=== PATIENT | female | born 1940 | race Caucasian/White ===

== ENCOUNTER → 2017-09-22 | Outpatient (CLI) | payer MEDICARE, OTHER, SELFPAY | PROVIDERS: Visit Provider Family Medicine | DX: E03.9 Hypothyroidism, unspecified (principal) | CPT/HCPCS: 36415; 84439; 84443 ==

== ENCOUNTER → 2018-01-27 13:57 | Outpatient (CLI) | payer MEDICARE, OTHER, SELFPAY ==
--- NOTE | 2018-01-27 13:59 | CA_ITS ---
PROCEDURE: 2-D M-mode and color Doppler study INDICATIONS FOR THE TEST: Chest pain COPD Heart Murmur Tobacco SmokingEX Palpitations Fatigue Syncope Edema HypertensionXDiabetes Mellitus Rheumatic Fever SOB BOWMAN Obesity HyperlipidemiaX Family History HD Additional History CAD,PTHN PATIENT INFORMATION HEIGHT: 61 WEIGHT:168 GENDER: Female B/P:146/57 2-D/M-MODE INTERPRETATION: 2-D MEASUREMENTS OBSERVED VALUES IN CMS Right Ventricular Dimension (RVDd) 2.3 Interventricular Septum (Thickness)(IVsd) 1.3 Left Ventricular Internal Dimensions(LVIDd) 4.0 Left Ventricular Posterior Wall (Thickness)(LVPWd) 1.2 Aortic Root 3.4 Aortic Cusp Separation 1.0 Left Atrial Dimensions (LAD) 3.2 2D 1. Left atrium is mildly enlarged, left ventricle is normal size, there is mild concentric left ventricular hypertrophy, visually estimated ejection fraction 55% with no obvious regional wall motion abnormality. 2. The right atrium and right ventricle are normal size and contractility. 3. The aortic valve is thickened and calcified with restriction the leaflet mobility. 4. The mitral valve has mitral annular calcification, leaflets are minimally thickened. 5. The pulmonic valve is poorly visualized 6. No significant pericardial effusion noted. DOPPLER INTERROGATION: Doppler interrogation of the aortic, mitral and tricuspid valve reveals presence of gradient across valve of 15 mmHg consistent with mild aortic stenosis, there is mild aortic insufficiency present. Grade 1 diastolic dysfunction seen with tissue Doppler evidence of raised left atrial pressure. Mild mitral and tricuspid regurgitation. Tricuspid regurgitant jet velocity insufficient for calculation of the right ventricular systolic pressure. CONCLUSION: 1. Mildly enlarged left atrium, normal left ventricular size, mild concentric left ventricular hypertrophy, visually estimated ejection fraction of 55% with no obvious regional wall motion abnormality, grade 1 diastolic dysfunction seen with tissue Doppler evidence of raised left atrial pressure. 2. Thickened and calcified aortic valve mean gradient across valve of 15 mmHg represents mild aortic stenosis, there is mild aortic insufficiency present. 3. Mild mitral and tricuspid regurgitation. 4. No significant pericardial effusion noted.
== END ==
PROVIDERS: PCP Family Medicine; Visit Provider Internal Medicine
DX: I27.20 Pulmonary hypertension, unspecified (principal)
CPT/HCPCS: 93306

== ENCOUNTER → 2018-02-01 08:57 | Outpatient (CLI) | payer MEDICARE, OTHER, SELFPAY ==
[2018-02-01 10:33] LABS: Free T4 (Free Thyroxine) 1.21 ng/dl (0.76-1.46); Thyroid Stimulating Hormone 0.16 uIU/ml (0.358-3.740)
== END ==
PROVIDERS: Visit Provider Family Medicine
DX: E03.9 Hypothyroidism, unspecified (principal)
CPT/HCPCS: 36415; 84439; 84443

== ENCOUNTER → 2020-06-27 07:10 | Outpatient (CLI) | payer MEDICARE, OTHER, SELFPAY ==
[2020-06-27 08:22] LABS: Basophils % 0.7 % (0.1-2.0); Eosinophils # 0.4 K/mm3 (0.0-0.4); Eosinophils % 8.3 % (0.1-12.0); Hematocrit 36.3 % (37.0-47.0); Hemoglobin 12.2 g/dL (12.2-16.2); Lymphocytes # 1.2 K/mm3 (0.7-4.5); Lymphocytes % 22.7 % (10-50); Mean Corpuscular HGB Conc 33.7 g/dL (31.8-35.4); Mean Corpuscular Hemoglobin 33.2 pg (27.0-31.2); Mean Corpuscular Volume 98.6 fl (81-99); Monocytes # 0.2 K/mm3 (0.1-1.0); Monocytes % 4.5 % (1.7-9.3); Neutrophils # 3.3 K/mm3 (1.8-7.8); Neutrophils % 63.8 % (37.0-80.0); Platelet Count 162 K/mm3 (142-424); Red Blood Count 3.68 M/mm3 (4.20-5.40); Red Cell Distribution Width 12.6 % (11.5-17.5); White Blood Count 5.2 K/mm3 (4.8-10.8)
[2020-06-27 08:57] LABS: Free T4 (Free Thyroxine) 1.15 ng/dl (0.78-2.19)
[2020-06-27 17:47] LABS: Alanine Aminotransferase 17 U/L (12-78); Albumin Level 3.8 g/dl (3.5-5.0); Albumin/Globulin Ratio 1.4 (1.1-1.8); Alkaline Phosphatase 87 U/L (38-126); Anion Gap 10.7 mEq/L (5-15); Aspartate Amino Transferase 23 U/L (14-36); Bilirubin,Total 0.3 mg/dl (0.2-1.3); Blood Urea Nitrogen 19 mg/dl (7-17); Calcium 9.5 mg/dl (8.4-10.2); Carbon Dioxide 29 mmol/L (22.0-30.0); Chloride 106 mmol/L (98-107); Cholesterol 201 mg/dl (140-200); Estimated Glomerular Filt Rate 60 ml/min (>60); GFR (African American) 73 ML/MIN (>60); Globulin 2.7 g/dL (1.3-3.2); Glucose 103 mg/dl (74-100); HDL Cholesterol 66 mg/dl (40-60); Magnesium 1.8 mg/dl (1.6-2.3); Phosphorous 4.3 mg/dl (2.5-4.5); Potassium 4.7 mmoL/L (3.5-5.1); Sodium 141 mmol/L (136-145); Total Protein,Serum 6.5 g/dl (6.3-8.2); Triglycerides 122 mg/dl (30-150); VLDL Cholesterol 24 mg/dL (0-40)
[2020-06-27 17:58] LABS: Direct LDL Cholesterol 105.53 mg/dL (100-129)
[2020-06-27 18:19] LABS: Thyroid Stimulating Hormone 0.21 uIU/mL (0.465-4.68)
[2020-06-27 18:37] LABS: Vitamin B12 286 pg/mL (239-931)
[2020-06-27 18:54] LABS: Creatinine,Urine Random 90 mg/dL (Not Estab.)
[2020-06-27 19:21] LABS: Microalbumin < 6.000 mg/L (0-16.7)
== END ==
PROVIDERS: Visit Provider Family Medicine
DX: R53.83 Other fatigue (principal); I10 Essential (primary) hypertension; E78.2 Mixed hyperlipidemia; E03.9 Hypothyroidism, unspecified; E55.9 Vitamin D deficiency, unspecified
CPT/HCPCS: 36415; 80053; 80061; 82043; 82306; 82570; 82607; 83735; 84100; 84439; 84443; 85025

== ENCOUNTER → 2020-12-05 10:09 | Outpatient (CLI) | payer MEDICARE, OTHER, SELFPAY | PROVIDERS: PCP Family Medicine; Visit Provider Urology | DX: I35.1 Nonrheumatic aortic (valve) insufficiency (principal) | CPT/HCPCS: 93306 ==

== ENCOUNTER 2021-05-17 22:39 | Observation (INO) | payer MEDICARE, OTHER, SELFPAY ==
[2021-05-17 22:39] VITALS: BP 220/108; BP 235/110; PULSE 97; RESP 22; TEMP 36.7; O2SAT 98; BMI 28.3
[2021-05-17 22:43] VITALS: BMI 28.3
[2021-05-17 22:48] VITALS: BP 190/101; PULSE 80; RESP 15; O2SAT 97
--- NOTE | 2021-05-17 22:48 | ECG_ITS ---
APPROVED REPORT Exam: Resting ECG HR:95 bpm ECG Measurements Heart Rate [address] 176 P 49 QRSd 76 QRS -8 QT 344 T 39 QTc 432 Conclusion Normal sinus rhythm Left atrial abnormality Late R wave progression Abnormal ECG Electronically signed by : Justus Woods MD 05/20/2021 11:50:51
--- NOTE | 2021-05-17 22:48 | XR_ITS ---
PROCEDURE INFORMATION: Exam: XR Chest Exam date and time: 05/17/2021 10:48 PM Age: 80 years old Clinical indication: Pain; Chest pressure and other: Elevated BP; Additional info: Relieved chest pain with elevated BP TECHNIQUE: Imaging protocol: XR of the chest. Views: 2 views. COMPARISON: [facility] CT CHEST W/ CONTRAST 08/30/2016 9:26 AM FINDINGS: Lungs: Scattered linear subsegmental atelectasis or scarring in the bilateral perihilar and infrahilar regions. No focal airspace consolidation. No overt pulmonary edema. Pleural spaces: No pleural effusion. Heart/Mediastinum: Normal heart size. Vasculature: Aortic atherosclerosis. Bones/joints: Osteopenia. Dextroconvex thoracic curvature. Spondylosis. IMPRESSION: Scattered bilateral perihilar/infrahilar subsegmental atelectasis or scarring.
[2021-05-17 22:56] LABS: Basophils # 0.1 K/mm3 (0-0.2); Basophils % 1.3 % (0.1-2.0); Eosinophils # 0.4 K/mm3 (0.0-0.4); Eosinophils % 5.9 % (0.1-12.0); Hematocrit 39.9 % (37.0-47.0); Lymphocytes # 3.8 K/mm3 (0.7-4.5); Lymphocytes % 56.5 % (10-50); Mean Corpuscular HGB Conc 32.7 g/dL (31.8-35.4); Mean Corpuscular Hemoglobin 31.2 pg (27.0-31.2); Mean Corpuscular Volume 95.2 fl (81-99); Mean Platelet Volume 8.4 fl (7.4-10.4); Monocytes # 0.3 K/mm3 (0.1-1.0); Monocytes % 4.9 % (1.7-9.3); Neutrophils # 2.1 K/mm3 (1.8-7.8); Neutrophils % 31.4 % (37.0-80.0); Platelet Count 183 K/mm3 (142-424); Red Blood Count 4.19 M/mm3 (4.20-5.40); Red Cell Distribution Width 13.6 % (11.5-17.5); White Blood Count 6.7 K/mm3 (4.8-10.8)
[2021-05-17 22:58] LABS: MANUAL DIFFERENTIAL MANUAL DIFFERENTIAL (MANUAL DIFF)
[2021-05-17 23:00] VITALS: BP 184/99; PULSE 78; RESP 14; O2SAT 98
[2021-05-17 23:03] LABS: Alanine Aminotransferase 18 U/L (12-78); Albumin Level 4.8 g/dl (3.5-5.0); Alkaline Phosphatase 122 U/L (38-126); Anion Gap 15.9 mEq/L (5-15); Aspartate Amino Transferase 31 U/L (14-36); Bilirubin,Direct 0.4 mg/dl (0.0-0.4); Bilirubin,Total 0.4 mg/dl (0.2-1.3); Blood Urea Nitrogen 29 mg/dl (7-17); Calcium 9.7 mg/dl (8.4-10.2); Carbon Dioxide 24 mmol/L (22.0-30.0); Chloride 103 mmol/L (98-107); Creatinine Clearance Estimated 47 mL/min (50-200); Estimated Glomerular Filt Rate 53 ml/min (>60); GFR (African American) 64 ML/MIN (>60); Glucose 107 mg/dl (74-100); Magnesium 1.9 mg/dl (1.6-2.3); Potassium 3.9 mmoL/L (3.5-5.1); Sodium 139 mmol/L (136-145); Total Protein,Serum 8.1 g/dl (6.3-8.2)
[2021-05-17 23:05] LABS: Eosinophils % 3 % (0-3); Lymphocytes % 56 % (10-50); Monocytes % 3 % (2-9); Neutrophils % 36 % (42-76); Platelet Estimate Normal; RBC Morphology Normal; Total Cells Counted 100
[2021-05-17 23:09] LABS: C-Reactive Protein 1.4 mg/L (0-4)
[2021-05-17 23:14] LABS: Coronavirus 19, PCR Not Detected (NotDetected); Influenza A, PCR Not Detected (NotDetected); Influenza B, PCR Not Detected (NotDetected)
[2021-05-17 23:19] LABS: Troponin I < 0.01 ng/ml (0.00-0.034)
[2021-05-17 23:22] LABS: Procalcitonin 0.077 ng/mL (0.0-2.0)
[2021-05-17 23:25] VITALS: BMI 28.3
[2021-05-17 23:30] VITALS: BP 195/96; PULSE 79; RESP 15; O2SAT 97
[2021-05-17 23:30] LABS: Erythrocyte Sedimentation Rate 24 mm/hr (0-30)
[2021-05-17 23:36] LABS: T4 (Thyroxine) 9.7 ug/dl (5.53-11.0)
--- NOTE | 2021-05-17 23:55 | HMH.EDCP ---
ED Disposition Clinical Impression: Chest pain Qualifiers: Chest pain type: precordial pain Qualified Code(s): R07.2 - Precordial pain Aortic stenosis Qualifiers: Cardiac valve disease etiology: nonrheumatic Qualified Code(s): I35.0 - Nonrheumatic aortic (valve) stenosis HTN (hypertension) Qualifiers: Hypertension type: primary hypertension Qualified Code(s): I10 - Essential (primary) hypertension Disposition: Admitted as Observation Condition on Discharge: Good - Critical Care Critical Care Time: No Attestation: On 05/17/21, the high probability of a clinically significant, sudden or life threatening deterioration of the following system(s) required my full and direct attention, intervention and personal management. The time I documented below is in addition to time spent performing reported procedures but includes the following listed in this critical care notation. Medical Decision Making - Medical Records Medical records reviewed: Yes: I reviewed the patient's medical records. - Daniele Inquiry Pt receiving controlled substance: No Vital Signs: 05/17/21 22:39 05/17/21 22:48 05/17/21 23:00 Temperature 98.0 F Temperature Source Oral Pulse Rate 80 78 Pulse Rate [Right] 97 H Respiratory Rate 22 15 14 Blood Pressure 190/101 H 184/99 H Blood Pressure [Right Arm] 235/110 H Blood Pressure Mean [Right Arm] 151 Blood Pressure Source [Right Arm] Automatic Cuff 02 Sat by Pulse Oximetry 98 97 98 Oxygen Delivery Method Room Air Room Air Room Air 05/17/21 23:30 05/18/21 00:00 Temperature Temperature Source Pulse Rate 79 78 Pulse Rate [Right] Respiratory Rate 15 17 Blood Pressure 195/96 H 187/86 H Blood Pressure [Right Arm] Blood Pressure Mean [Right Arm] Blood Pressure Source [Right Arm] 02 Sat by Pulse Oximetry 97 98 Oxygen Delivery Method Room Air Room Air - Lab Data Lab results reviewed: Yes: I reviewed the patient's lab results. Lab Results 05/17/21 22:35: WBC 6.7, RBC 4.19 L, Hgb 13.0, Hct 39.9, MCV 95.2, MCH 31.2, MCHC 32.7, RDW 13.6, Plt Count 183, MPV 8.4, Neut % (Auto) 31.4 L, Lymph % (Auto) 56.5 H, [place] % (Auto) 4.9, Eos % (Auto) 5.9, Baso % (Auto) 1.3, Neut # (Auto) 2.1, Lymph # (Auto) 3.8, [place] # (Auto) 0.3, Eos # (Auto) 0.4, Baso # (Auto) 0.1, Total Counted 100, Neutrophils % (Manual) 36 L, Band Neutrophils % 2.0, Lymphocytes % (Manual) 56 H, Monocytes % (Manual) 3, Eosinophils % (Manual) 3, Platelet Estimate Normal, RBC Morphology Normal, ESR 24 05/17/21 22:35: Sodium 139, Potassium 3.9, Chloride 103, Carbon Dioxide 24, Anion Gap 15.9 H, BUN 29 H, Creatinine 1.00, Estimated Creat Clear 47, Estimated GFR 53 L, Est GFR ( Amer) 64, Glucose 107 H, Calcium 9.7, Magnesium 1.9, Total Bilirubin 0.4, Direct Bilirubin 0.4, Conjugated Bilirubin 0.0, Indirect Bilirubin 0.0, Unconjugated Bilirubin 0.0, AST 31, ALT 18, Alkaline Phosphatase 122, Troponin I < 0.01, C-Reactive Protein 1.4, Total Protein 8.1, Albumin 4.8, Procalcitonin 0.077 05/17/21 22:35: TSH 1.50, Thyroxine (T4) 9.7 05/17/21 23:10: SARS-CoV-2 (PCR) Not detected, Influenza A Untype (PCR) Not detected, Influenza Type B (PCR) Not detected Result diagrams: 05/17/21 22:35 05/17/21 22:35 Orders (Tests/Meds): ED MEDICATIONS Generic Name Dose Route Start Last Admin Trade Name Freq PRN Reason Stop Dose Admin Sodium Chloride 1,000 mls @ 999 mls/hr 05/17/21 23:45 05/17/21 23:46 Sod Chlor 0.9% 1000ml Bag IV 05/18/21 00:45 999 mls/hr .Q1H1M MISHA Administration Discontinued Medications Generic Name Dose Route Start Last Admin Trade Name Freq PRN Reason Stop Dose Admin Aspirin 324 mg 05/17/21 22:48 05/17/21 22:40 Aspirin 81mg Chewable Tablet PO 05/17/21 22:49 324 mg ONCE ONE Administration Nitroglycerin 0.4 mg 05/17/21 22:48 05/17/21 22:40 Nitroglycerin 0.4mg Sl Tablet SL 05/17/21 22:49 0.4 mg ONCE ONE Administration Nitroglycerin 1 gm 05/17/21 23:49 05/17/21 23:50
[2021-05-18] VITALS (25 sets, daily range): BP systolic 108–187; BP diastolic 45–86; PULSE 45–80; RESP 16–20; TEMP 36.4–37.1; O2SAT 94–98
--- NOTE | 2021-05-18 | IR_ITS ---
APPROVED REPORT Patient Location: [facility] [employer] [facility] Consultant: Ricarda PELAYO RT (R) PROCEDURES 1. Left heart catheterization 2. Selective coronary arteriography 3. Left ventriculography INDICATION 1. Unstable angina, 2. Coronary artery disease SCAI INDICATION Patient is an 80-year-old white female who presented with chest pain. Pressure and tightness of the chest. Unstable angina features. Known coronary artery disease. Secondary to this referred for left heart catheterization Informed consent was obtained prior to the procedure. COMPLICATIONS NONE Estimated Blood Loss: LESS THAN 10 ML TECHNIQUE One percent lidocaine was used to anesthetize the right groin. The right femoral artery was accessed via the Seldinger technique. A 4-Ukrainian sheath was placed in the right femoral artery. The JL-4 and JR-4 catheter was also used to perform left heart catheterization left ventriculogram and selective coronary angiogram. At the end of the procedure the patient was transferred to the post-op holding area in stable condition for arterial sheath removal. ANGIOGRAPHIC RESULTS The left main artery Angiographically normal The left anterior descending artery Mild calcification throughout the proximal vessel with smooth 20% stenosis The circumflex artery Mild luminal irregularities. Moderate in size The right coronary artery Large and dominant with smooth 20% proximal and smooth 20% mid stenosis. Normal flow into the distal vessel The ABBOTT ventriculogram reveals Normal left ventricular systolic function with an ejection fraction of 60% The left ventricular end-diastolic pressure 12 There was a 10 mm gradient across the aortic valve. Moderate mitral annular calcification was noted. IMPRESSION 1. Trivial coronary artery disease 2. Normal left ventricular systolic function 3. Normal left ventricular end-diastolic pressure 4. Successful placement of an Angio-Seal device in the right common femoral artery PLAN 1. Patient will continue with medical therapy. There is calcification of the valves but no significant gradient across the aortic valve. Aggressive control of blood pressure and heart rate. Aspirin 81 mg daily. Follow-up in cardiology clinic in 1 to 2 weeks for further evaluation and treatment Electronically signed by : Hugo Denton MD 05/18/2021 14:15:18
[2021-05-18 01:01] LABS: Microscopic, Urine URINE MICROSCOPIC (MICROSCOPIC)
[2021-05-18 01:03] LABS: Appearance,Urine CLEAR (Clear); Bilirubin,Urine Negative (Negative); Blood, Urine Negative (Negative); Color,Urine YELLOW (Yellow); Glucose,Urine (UA) Negative (Negative); Ketones,Urine Negative (Negative); Leukocyte Esterase,Urine Negative (Negative); Nitrate,Urine Negative (Negative); Protein,Urine Negative (Negative); Urobilinogen,Urine 0.2 EU/dl (0.2)
--- NOTE | 2021-05-18 01:05 | PC.NURSE ---
PT ARRIVED TO FLOOR VIA W/C FROM ED W/STAFF AT 0105
[2021-05-18 02:57] LABS: Troponin I 0.02 ng/ml (0.00-0.034)
--- NOTE | 2021-05-18 04:05 | PC.NURSE ---
A&OX4. TOLERATING RA WELL. PT IS UP INDEPENDENTLY IN ROOM. PT HAS HAD NO C/O CP OR SOA THUS FAR. PT DID C/O TORRES-TX WITH PRN TYLENOL. ON REASSESSMENT, PT RESTING IN BED WITH EYES CLOSED. VSS WILL CONTINUE TO MONITOR.
[2021-05-18 05:24] LABS: Basophils # 0.1 K/mm3 (0-0.2); Basophils % 0.8 % (0.1-2.0); Eosinophils # 0.2 K/mm3 (0.0-0.4); Eosinophils % 2.6 % (0.1-12.0); Hematocrit 33.2 % (37.0-47.0); Lymphocytes # 2.4 K/mm3 (0.7-4.5); Lymphocytes % 38.3 % (10-50); Mean Corpuscular HGB Conc 32.8 g/dL (31.8-35.4); Mean Corpuscular Hemoglobin 30.9 pg (27.0-31.2); Mean Corpuscular Volume 94.2 fl (81-99); Mean Platelet Volume 8.1 fl (7.4-10.4); Monocytes # 0.4 K/mm3 (0.1-1.0); Monocytes % 5.8 % (1.7-9.3); Neutrophils # 3.3 K/mm3 (1.8-7.8); Neutrophils % 52.4 % (37.0-80.0); Platelet Count 199 K/mm3 (142-424); Red Blood Count 3.52 M/mm3 (4.20-5.40); Red Cell Distribution Width 13.6 % (11.5-17.5); White Blood Count 6.4 K/mm3 (4.8-10.8)
[2021-05-18 05:27] LABS: Hemoglobin 10.9 g/dL (12.2-16.2)
[2021-05-18 05:42] LABS: Anion Gap 11.1 mEq/L (5-15); Blood Urea Nitrogen 24 mg/dl (7-17); Carbon Dioxide 23 mmol/L (22.0-30.0); Chloride 111 mmol/L (98-107); Creatinine Clearance Estimated 47 mL/min (50-200); Estimated Glomerular Filt Rate 69 ml/min (>60); GFR (African American) 83 ML/MIN (>60); Glucose 110 mg/dl (74-100); Magnesium 1.8 mg/dl (1.6-2.3); Potassium 4.1 mmoL/L (3.5-5.1); Sodium 141 mmol/L (136-145)
[2021-05-18 05:51] LABS: Calcium 8.6 mg/dl (8.4-10.2)
[2021-05-18 05:54] LABS: Troponin I 0.02 ng/ml (0.00-0.034)
--- NOTE | 2021-05-18 08:00 | CA_ITS ---
APPROVED REPORT EXAM: Comprehensive 2D, Doppler, and color-flow Echocardiogram Court Monitor: Sharron Membreno RDCS Ht: 5 ft 1 in Wt: 150lbs BSA: 1.67 BP: 187/86 mmHg Indications: cp,as,cad,htn,hlp 2D Dimensions LVOT 1.86 cm (M/F) 1.5-2.5 LA Volume 53.60 mL LA Volume Index 32.09 mL/m2 (M/F) 16-34 M-Mode Dimensions RVDd 1.86 cm (0.9-2.6) LA Diam 3.77 cm (1.9-4.0) LVDd 4.61 cm (3.5-5.7) Ao Diam 3.08 cm (2.0-3.7) LVDs 3.33 cm (3.5-5.7) IVSd 1.00 cm (0.6-1.1) PWd 1.04 cm (0.6-1.1) EF (Teich) 53.90% FS 27.80% EDV (Teich) 97.80 mL TAPSE 2.22 (<1.7) ESV (Teich) 45.10 mL LV Diastology E Decel Time 407.00 (160-240 msec) E/A Ratio 1.1 MED E' 5.80 (< 7 cm/sec) E'/MED E' Ratio 21.21 (>14) LAT E' 5.60 (<10 cm/sec) E/LAT E' Ratio 21.96 (>14) Aortic Valve LVOT Max 147.00 (70-110 cm/s) LVOT VTI 33.38 cm AoV Peak Albaro. 250.00 (50-130 cm/s) AO Peak GR. 24.90 mmHg AO Mean GR. 12.40 (<5 mmHg) AO VTI 50.61 (18-25 cm) JACINTO (VTI) 1.79 (2.5-4.5 cm2) Mitral Valve MV E Max Albaro. 123.00 (40-130 cm/s) MV A Velocity 109.00 (40-130 cm/s) E/A Ratio 1.13 MV Decel. Time 407.00 (160-240 ms) MV PHT 119.00 ms Tricuspid Valve TR P. Velocity 304.00 cm/s RAP Estimate 10.00 mmHg RVSP 47.00 mmHg Left Ventricle Left atrium is moderately enlarged, left ventricle is normal size, mild concentric left ventricular hypertrophy, visually estimated ejection fraction 55% with no regional wall motion abnormality, grade 2 diastolic dysfunction seen with tissue Doppler evidence of raise left atrial pressure. Right Ventricle Right atrium and right ventricle moderately enlarged with normal contractility. Aortic Valve Aortic valve is thickened and calcified with severe restriction to leaflet mobility, morphologically there is severe aortic stenosis, however the mean gradient and aortic outflow velocity is only indicative of mild aortic stenosis, if clinically indicated a transesophageal echocardiogram is recommended. Mitral Valve Mitral valve has mitral calcification, leaflets are minimally thickened, there is moderate mitral regurgitation. Tricuspid Valve Tricuspid grossly normal, there is moderate tricuspid regurgitation, calculated right ventricular systolic pressure is 47 mmHg. Pulmonic Valve Pulmonic valve is poorly visualized. Great Vessels Aortic root is normal size. Pericardium No significant pericardial effusion noted. Conclusion 1. Biatrial enlargement, normal left ventricular size, mild concentric left ventricular hypertrophy, visually estimated ejection fraction 55% with no regional wall motion abnormality, grade 2 diastolic dysfunction seen with tissue Doppler evidence of raise left atrial pressure. 2. Thickened and calcified aortic valve morphologically there is aortic stenosis, however Doppler is indicative of only mild aortic stenosis. If clinically indicated transesophageal echocardiogram is recommended. 3. Moderate mitral and tricuspid regurgitation, calculated right ventricular systolic pressure is 47 mmHg. 4. No significant pericardial effusion noted. Electronically signed by : Colin Trujillo MD 05/18/2021 22:13:47
--- NOTE | 2021-05-18 08:02 | HMH.PHAVTE ---
[facility] Pharmacy VTE Monitoring - Patient Demographics Admission date: 05/17/21 Report Date: 05/18/21 Time: 08:02 Allergies/Adverse Reactions: Patient Allergies azithromycin [From ZITHROMAX Z-DAVIS] Allergy (Unknown, Verified 12/23/20 14:51) sulfamethoxazole [From BACTRIM] Allergy (Unknown, Verified 12/23/20 14:51) trimethoprim [From BACTRIM] Allergy (Unknown, Verified 12/23/20 14:51) Height: 1.55 m Weight: 68.096 kg Patient Problems: Current Active Problems (Last Updated 05/23/19 @ 11:51 by Neida Betancourt RN) Chest pain (Acute) Aortic stenosis (Chronic) HTN (hypertension) (Chronic) - VTE Risk Labs: VTE Related Lab Results Hgb 10.9 g/dL (12.2-16.2) L D 05/18/21 05:05 Hct 33.2 % (37.0-47.0) L 05/18/21 05:05 Plt Count 199 K/mm3 (142-424) 05/18/21 05:05 BUN 24 mg/dl (7-17) H 05/18/21 05:05 Creatinine 0.80 mg/dl (0.52-1.04) 05/18/21 05:05 Estimated Creat Clear 47 mL/min (50-200) 05/18/21 05:05 VTE Score: 5 VTE Risk Level: Low Risk - Prophylaxis VTE Prophylaxis Ordered?: Yes Types of VTE Prophylaxis: TEDS Knee High Location of Applied Device: Bilateral Lower Extremeties
--- NOTE | 2021-05-18 08:53 | HMH.CNCARD ---
History of Present Illness Consult date: 05/18/21 Requesting physician: Amarjit Paula Consult reason: chest pain Chief complaint: atypical chest pain, malignant HTN History of present illness: 80-year-old female presented to ED last evening with midsternal chest pain radiating to the upper portion of her back and neck. Patient states prior to arriving to the ED she did take her blood pressure at home which was elevated. Patient states her reading was 234/110. Patient states when she realized her blood pressure had been elevated, she did take an extra dose of verapamil. Verapamil did decrease her blood pressure. Patient states she has noticed she has been eating a lots of salt and has increased her sodium intake in the past couple weeks. No swelling noted of the lower extremities. Patient states chest pain was 10/10 on pain scale when arriving to the ED. Patient did states she felt that this was more anxiety than heart related. Patient denies chest pain, tightness or pressure. Patient denies shortness of breath. Patient denies nausea or vomiting. Patient denies fevers. Blood pressure has been stable since admission. Patient does complain of gas-like pain in her chest. States when she is able to belch she feels much better. Patient states this has been going on for the past few weeks. Patient does have history of mild coronary artery disease which was noted from a left heart catheterization in 2016. Patient does have history of aortic insufficiency and aortic stenosis and mild to moderate mitral valve regurgitation. This was noted on a prior echocardiogram from December 2020. EF noted at 55%. Patient does have history of pulmonary hypertension. Patient is a non-smoker. Patient does have history of hypertension and hyperlipidemia. Initial work-up was performed in the ED. EKG revealed normal sinus rhythm with heart rate [address] or T wave abnormality noted. Chest x-ray revealed scattered bilateral perihilar/infrahilar subsegmental atelectasis or scarring. Serial troponins were noted at 0.01 then 0.02 x2. CXR:IMPRESSION: Scattered bilateral perihilar/infrahilar subsegmental atelectasis or scarring. Discussed plan of care with Dr. Denton. Orders were received from Dr. Denton. We will set patient up for a left heart catheterization today due to atypical chest pain and malignant hypertension. We will also obtain echocardiogram to assess LV function and valve status. Pending on the results of the left heart catheterization and echocardiogram, recommendations and medication and treatment therapies may be considered. Continue to monitor patient status. Please notify cardiology of any changes in patient status. Thank you for allowing cardiology to participate in the care of this patient. [facility] History I have reviewed the patient's past medical history: Yes Medical History: Reports:: Cancer, Coronary Artery Disease, Gastroesophageal Reflux Disease(GERD), Heart Murmur, Hyperlipidemia, Hypertension, Valvular Heart Disease *Have you ever received a pneumonia vaccine?: Yes *Have you received a flu vaccine this season?: Yes Other Medical History: Reports: Arthritis, Hypothyroidism Laterality Cases: Bilateral: Tonsillectomy Other Surgeries: Yes: Appendectomy, Cardiac Catheterization, Cardiac Surgery, Dilation and Curettage, Plastic Surgery - *Social History Smoking Status: Former smoker Alcohol Intake: never Alcohol Intake Frequency:: holidays/special occasions only Substance Use Type: denies use *Occupational Status:: retired *Travel in the last 8 weeks: None Family Hx:: No significant family history Meds Home Medications Medication Instructions Recorded Confirmed Type cholecalciferol (vitamin D3) 25 1,000 unit PO ONCE 01/23/18 05/18/21 History mcg (1,000 unit) capsule levothyroxine 50 mcg tablet 50 mcg PO DAILY tab 01/23/18 05/18/21 History omeprazole 20 mg capsule,delayed 20 mg PO DAILY cap 01/23/18 05/18/21 H
--- NOTE | 2021-05-18 09:38 | HMH.HP ---
*Admission Date: 05/17/21 <Harper Bhakta - 05/18/21 09:58> *Chief complaint: Elevated blood pressure and rapid heart rate <Harper Bhakta - 05/18/21 09:58> *History of present illness: Ms. Hernandez is an 80-year-old female with a history of breast cancer, allergic rhinitis, hyperlipidemia, hiatal hernia, multiple basal cell carcinoma with removal from the face chest and back, aortic stenosis, anxiety disorder, low back pain with lumbar disc disease, thoracic disc disease, and thoracic scoliosis, hypertension, and hypothyroidism who presented to [facility] emergency room for evaluation after experiencing chest and back discomfort with an elevated blood pressure at 234/110. She states she also felt an irregular heart rhythm. Upon arrival to the emergency room she says she felt much better. She did take an extra verapamil last night prior to coming to the ER. In the emergency room blood pressure was found to be 235/110, 190/101, and 184/99. Heart rate was found to be in the 80s and 70s. She was given a liter of IV fluids along with an aspirin, and nitroglycerin sublingually. She also had nitroglycerin paste placed. Chest x-ray revealed scattered bilateral perihilar/infrahilar subsegmental atelectasis or scarring. Lab data as follows: 05/17/21 22:35: WBC 6.7, RBC 4.19 L, Hgb 13.0, Hct 39.9, MCV 95.2, MCH 31.2, MCHC 32.7, RDW 13.6, Plt Count 183, MPV 8.4, Neut % (Auto) 31.4 L, Lymph % (Auto) 56.5 H, [place] % (Auto) 4.9, Eos % (Auto) 5.9, Baso % (Auto) 1.3, Neut # (Auto) 2.1, Lymph # (Auto) 3.8, [place] # (Auto) 0.3, Eos # (Auto) 0.4, Baso # (Auto) 0.1, Total Counted 100, Neutrophils % (Manual) 36 L, Band Neutrophils % 2.0, Lymphocytes % (Manual) 56 H, Monocytes % (Manual) 3, Eosinophils % (Manual) 3, Platelet Estimate Normal, RBC Morphology Normal, ESR 24 05/17/21 22:35: Sodium 139, Potassium 3.9, Chloride 103, Carbon Dioxide 24, Anion Gap 15.9 H, BUN 29 H, Creatinine 1.00, Estimated Creat Clear 47, Estimated GFR 53 L, Est GFR ( Amer) 64, Glucose 107 H, Calcium 9.7, Magnesium 1.9, Total Bilirubin 0.4, Direct Bilirubin 0.4, Conjugated Bilirubin 0.0, Indirect Bilirubin 0.0, Unconjugated Bilirubin 0.0, AST 31, ALT 18, Alkaline Phosphatase 122, Troponin I < 0.01, C-Reactive Protein 1.4, Total Protein 8.1, Albumin 4.8, Procalcitonin 0.077 05/17/21 22:35: TSH 1.50, Thyroxine (T4) 9.7 05/17/21 23:10: SARS-CoV-2 (PCR) Not detected, Influenza A Untype (PCR) Not detected, Influenza Type B (PCR) Not detected Patient had a cardiology consult with documentation as follows: 80-year-old female presented to ED last evening with midsternal chest pain radiating to the upper portion of her back and neck. Patient states prior to arriving to the ED she did take her blood pressure at home which was elevated. Patient states her reading was 234/110. Patient states when she realized her blood pressure had been elevated, she did take an extra dose of verapamil. Verapamil did decrease her blood pressure. Patient states she has noticed she has been eating a lots of salt and has increased her sodium intake in the past couple weeks. No swelling noted of the lower extremities. Patient states chest pain was 10/10 on pain scale when arriving to the ED. Patient did states she felt that this was more anxiety than heart related. Patient denies chest pain, tightness or pressure. Patient denies shortness of breath. Patient denies nausea or vomiting. Patient denies fevers. Blood pressure has been stable since admission. Patient does complain of gas-like pain in her chest. States when she is able to belch she feels much better. Patient states this has been going on for the past few weeks. Patient does have history of mild coronary artery disease which was noted from a left heart catheterization in 2017. Patient does have history of aortic insufficiency and aortic stenosis and mild to moderate mitral valve regurgitation. This was noted on a prior echocardiogram from
--- NOTE | 2021-05-18 10:13 | HMH.PHAINT ---
MEDICATION RECONCILIATION COMPLETED ON PATIENT USING EXTERNAL FILL HISTORY FROM PHARMACY. -VINCENT JANSEN, BRENTD
--- NOTE | 2021-05-18 16:59 | PC.NURSE ---
PT IS RESTING IN BED WITH FAMILY AT BEDSIDE. NO COMPLAINTS OF CHEST PAIN OR SOA. TOLERATED HEART CATH WELL TODAY. DRESSING TO THE RT GROIN C/D/I. LUNG SOUNDS CLEAR. ABDOMEN SOFT/NON TENDER WITH ACTIVE BOWEL SOUNDS. EATING AND DRINKING WELL. SINUS LAURI ON TELEMETRY. AMBULATES TO THE BATHROOM. WILL CONTINUE TO MONITOR.
[2021-05-19] VITALS: BP 136/70; PULSE 60; PULSE 79; RESP 18; TEMP 36.6; O2SAT 100
--- NOTE | 2021-05-19 00:35 | PC.NURSE ---
REPORT RECEIVED FROM Prince HINES RN
--- NOTE | 2021-05-19 00:45 | PC.NURSE ---
PT TO OB FLOOR AT THIS TIME. ORIENTED TO UNIT, ROOM, STAFF AND PLAN OF CARE. QUESTIONS ENCOURAGED AND ANSWERED. PT TRANSPORTED VIA WHEELCHAIR TO ROOM 277. BELONGINGS WITH PATIENT. CALL LIGHT IN REACH ONCE PATIENT SETTLED IN BED. NO NEEDS.
--- NOTE | 2021-05-19 01:39 | PC.NURSE ---
PATIENT A&O X4. VSS. MILD PAIN REPORTED TO RIGHT GROIN. PRN MEDS GIVEN. GROIN SITE C/D/I. PATIENT COMFORTABLE AND WANTING TO SLEEP.
[2021-05-19 04:00] VITALS: O2SAT 98
[2021-05-19 05:20] VITALS: BP 146/82; PULSE 67; RESP 18; TEMP 36.9; O2SAT 98
[2021-05-19 06:13] LABS: Eosinophils # 0.3 K/mm3 (0.0-0.4); Eosinophils % 7.6 % (0.1-12.0); Hematocrit 38.4 % (37.0-47.0); Hemoglobin 12.2 g/dL (12.2-16.2); Lymphocytes # 1.8 K/mm3 (0.7-4.5); Lymphocytes % 42.8 % (10-50); Mean Corpuscular HGB Conc 31.8 g/dL (31.8-35.4); Mean Corpuscular Hemoglobin 30.8 pg (27.0-31.2); Mean Platelet Volume 7.8 fl (7.4-10.4); Monocytes # 0.2 K/mm3 (0.1-1.0); Monocytes % 5.7 % (1.7-9.3); Neutrophils # 1.8 K/mm3 (1.8-7.8); Neutrophils % 42.9 % (37.0-80.0); Platelet Count 190 K/mm3 (142-424); Red Blood Count 3.95 M/mm3 (4.20-5.40); Red Cell Distribution Width 13.7 % (11.5-17.5); White Blood Count 4.1 K/mm3 (4.8-10.8)
[2021-05-19 06:28] LABS: Chloride 108 mmol/L (98-107); Potassium 3.7 mmoL/L (3.5-5.1); Sodium 140 mmol/L (136-145)
[2021-05-19 06:31] LABS: Anion Gap 8.7 mEq/L (5-15); Blood Urea Nitrogen 17 mg/dl (7-17); Calcium 8.8 mg/dl (8.4-10.2); Carbon Dioxide 27 mmol/L (22.0-30.0); Creatinine Clearance Estimated 47 mL/min (50-200); Estimated Glomerular Filt Rate 60 ml/min (>60); GFR (African American) 73 ML/MIN (>60); Glucose 112 mg/dl (74-100)
--- NOTE | 2021-05-19 07:00 | PC.NURSE ---
report given to maribel murray rn
--- NOTE | 2021-05-19 07:30 | PC.NURSE ---
Ernie LEON APRN AT BEDSIDE. REPORT GIVEN
--- NOTE | 2021-05-19 08:00 | HMH.PNCARD ---
Subjective Date: 05/19/21 Time: 08:00 Principal diagnosis: Chest pain Interval history: 80-year-old female admitted to [facility] with midsternal chest pain radiating to neck and mid back area yesterday. Patient did undergo a left heart catheterization which revealed trivial coronary artery disease, normal left ventricular systolic function with normal left ventricular end-diastolic pressure. Patient denies chest pain, tightness or pressure. Patient denies shortness of breath. No swelling noted of the lower extremities. Denies palpitations or dizziness. Cath site of the right groin noted with no swelling or drainage noted at the site. Dressing is dry and intact. Echocardiogram was also performed. Which revealed EF 55% with no regional wall motion abnormality, grade 2 diastolic dysfunction with raised left atrial pressure. There is noted to be severe aortic stenosis. It is clinically indicated for patient to undergo LEELA to verify the severity of aortic stenosis and moderate mitral and tricuspid regurgitation. Pulmonary hypertension also noted with pressure being 47 mmHg. Will discuss patient undergoing LEELA on an outpatient basis. Patient will need better control of blood pressure and heart rate. Patient was started on carvedilol yesterday by PCP. Patient was started on aspirin 81 mg daily. We will have patient monitor blood pressure and heart rate at home until follow-up with cardiology in 1 week. Due to the pulmonary hypertension, will start patient on a low-dose diuretic. Patient will need BMP and CBC in 1 week. Vital signs are stable. residential monitor reveals sinus rhythm with a heart rate of 68 bpm. [facility]:IMPRESSION 1. Trivial coronary artery disease 2. Normal left ventricular systolic function 3. Normal left ventricular end-diastolic pressure 4. Successful placement of an Angio-Seal device in the right common femoral artery PLAN 1. Patient will continue with medical therapy. There is calcification of the valves but no significant gradient across the aortic valve. Aggressive control of blood pressure and heart rate. Aspirin 81 mg daily. Follow-up in cardiology clinic in 1 to 2 weeks for further evaluation and treatment Echo:Conclusion 1. Biatrial enlargement, normal left ventricular size, mild concentric left ventricular hypertrophy, visually estimated ejection fraction 55% with no regional wall motion abnormality, grade 2 diastolic dysfunction seen with tissue Doppler evidence of raise left atrial pressure. 2. Thickened and calcified aortic valve morphologically there is aortic stenosis, however Doppler is indicative of only mild aortic stenosis. If clinically indicated transesophageal echocardiogram is recommended. 3. Moderate mitral and tricuspid regurgitation, calculated right ventricular systolic pressure is 47 mmHg. 4. No significant pericardial effusion noted. Discussed plan of care with Dr. Denton. Orders were received from Dr. Denton Thank you for allowing cardiology to participate in the care of this patient. Exam Vital signs and Labs for Last 24 Hours: Temp Pulse Resp BP Pulse Ox 98.4 F 67 18 146/82 H 98 05/19/21 05:20 05/19/21 05:20 05/19/21 05:20 05/19/21 05:20 05/19/21 05:20 Laboratory Results - last 24 hr 05/19/21 05:45: WBC 4.1 L D, RBC 3.95 L, Hgb 12.2, Hct 38.4, MCV 97.0, MCH 30.8, MCHC 31.8, RDW 13.7, Plt Count 190, MPV 7.8, Neut % (Auto) 42.9, Lymph % (Auto) 42.8, [place] % (Auto) 5.7, Eos % (Auto) 7.6, Baso % (Auto) 1.0, Neut # (Auto) 1.8, Lymph # (Auto) 1.8, [place] # (Auto) 0.2, Eos # (Auto) 0.3, Baso # (Auto) 0.0 05/19/21 05:45: Sodium 140, Potassium 3.7, Chloride 108 H, Carbon Dioxide 27, Anion Gap 8.7, BUN 17 D, Creatinine 0.90, Estimated Creat Clear 47, Estimated GFR 60, Est GFR ( Amer) 73, Glucose 112 H, Calcium 8.8 I & O for Last 24 hours: Intake & Output 05/16/21 05/17/21 05/18/21 05/19/21 23:59 23:59 23:59 23:59
--- NOTE | 2021-05-19 08:10 | HMH.ACPN2 ---
<Harper Bhakta - Last Filed: 05/19/21 08:10> Internal Medicine - PN: Subj *Date: 05/19/21 *Time: 08:10 Interval history: Patient denies chest pain and shortness of breath. She is ambulating to the bathroom without difficulty. She has been eating well. She did sleep at intervals last night. She had a cardiac cath yesterday with the following results: IMPRESSION 1. Trivial coronary artery disease 2. Normal left ventricular systolic function 3. Normal left ventricular end-diastolic pressure 4. Successful placement of an Angio-Seal device in the right common femoral artery PLAN 1. Patient will continue with medical therapy. There is calcification of the valves but no significant gradient across the aortic valve. Aggressive control of blood pressure and heart rate. Aspirin 81 mg daily. Follow-up in cardiology clinic in 1 to 2 weeks for further evaluation and treatment Echocardiogram with the following results: Conclusion 1. Biatrial enlargement, normal left ventricular size, mild concentric left ventricular hypertrophy, visually estimated ejection fraction 55% with no regional wall motion abnormality, grade 2 diastolic dysfunction seen with tissue Doppler evidence of raise left atrial pressure. 2. Thickened and calcified aortic valve morphologically there is aortic stenosis, however Doppler is indicative of only mild aortic stenosis. If clinically indicated transesophageal echocardiogram is recommended. 3. Moderate mitral and tricuspid regurgitation, calculated right ventricular systolic pressure is 47 mmHg. 4. No significant pericardial effusion noted. 05/19/21 05:45: WBC 4.1 L D, RBC 3.95 L, Hgb 12.2, Hct 38.4, MCV 97.0, MCH 30.8, MCHC 31.8, RDW 13.7, Plt Count 190, MPV 7.8, Neut % (Auto) 42.9, Lymph % (Auto) 42.8, [place] % (Auto) 5.7, Eos % (Auto) 7.6, Baso % (Auto) 1.0, Neut # (Auto) 1.8, Lymph # (Auto) 1.8, [place] # (Auto) 0.2, Eos # (Auto) 0.3, Baso # (Auto) 0.0 05/19/21 05:45: Sodium 140, Potassium 3.7, Chloride 108 H, Carbon Dioxide 27, Anion Gap 8.7, BUN 17 D, Creatinine 0.90, Estimated Creat Clear 47, Estimated GFR 60, Est GFR ( Amer) 73, Glucose 112 H, Calcium 8.8 Exam Vital signs and Labs for Last 24 Hours: Temp Pulse Resp BP Pulse Ox 98.4 F 67 18 146/82 H 98 05/19/21 05:20 05/19/21 05:20 05/19/21 05:20 05/19/21 05:20 05/19/21 05:20 Laboratory Results - last 24 hr 05/19/21 05:45: WBC 4.1 L D, RBC 3.95 L, Hgb 12.2, Hct 38.4, MCV 97.0, MCH 30.8, MCHC 31.8, RDW 13.7, Plt Count 190, MPV 7.8, Neut % (Auto) 42.9, Lymph % (Auto) 42.8, [place] % (Auto) 5.7, Eos % (Auto) 7.6, Baso % (Auto) 1.0, Neut # (Auto) 1.8, Lymph # (Auto) 1.8, [place] # (Auto) 0.2, Eos # (Auto) 0.3, Baso # (Auto) 0.0 05/19/21 05:45: Sodium 140, Potassium 3.7, Chloride 108 H, Carbon Dioxide 27, Anion Gap 8.7, BUN 17 D, Creatinine 0.90, Estimated Creat Clear 47, Estimated GFR 60, Est GFR ( Amer) 73, Glucose 112 H, Calcium 8.8 I & O for Last 24 hours: Intake & Output 05/16/21 05/17/21 05/18/21 05/19/21 11:59 11:59 11:59 11:59 Intake Total 1000 / 1000 360 / 360 Output Total 300 / 300 Balance 700 / 700 360 / 360 Weight 150 lb 2 oz - Constitutional no acute distress Comments: Sitting up in the bed eating her breakfast. Appears very comfortable. - *Routine Respiratory Exam Present: crackles (Few bibasilar) - *Routine Cardiovascular Exam Present: RRR - *Routine Abdominal Exam Present: soft, normoactive bowel sounds. Absent: tenderness - *Routine Extremities Exam Absent: edema, calf tenderness (Acute) - *Routine Neurological Exam Present: alert, oriented X3 Assessment and Plan (1) Chest pain, atypical Status: Acute Category: Medical Code(s): R07.89 - Other chest pain (2) Aortic stenosis Status: Chronic Qualifiers: Cardiac valve disease etiology: nonrheumatic Qualified Code(s): I35.0 - Nonrheumatic aortic (valve) stenosis Category: Medical C
--- NOTE | 2021-05-19 08:13 | PC.NURSE ---
dr. jara at bedside
[2021-05-19 08:15] VITALS: BP 170/68; PULSE 66; RESP 20; TEMP 36.7; O2SAT 99
--- NOTE | 2021-05-19 08:15 | PC.NURSE ---
pt a/o x4, lungs cta and bowel sounds active x4. Patient noted to have mumur upon assessment. Reports BM yesterday. Dressing to right groin c/d/i. Pt denies pain, sob. Pt anxious to go home. Denies numbness, tingling. IV infusing well to left a/c. no needs voiced.
--- NOTE | 2021-05-19 10:15 | PC.NURSE ---
SPOKE WITH LEROY MELTON ORDERS TO STOP VERAPAMIL AND THAT SHE WILL CALL IN [facility] FOR PATIENT LATER. R/V
--- NOTE | 2021-05-20 16:41 | HMH.DCSUM ---
General - General Admission date:: 05/18/21 Discharge date: 05/19/21 HPI HPI: Ms. Hernandez is an 80-year-old female with a history of breast cancer, allergic rhinitis, hyperlipidemia, hiatal hernia, multiple basal cell carcinoma with removal from the face, chest and back, aortic stenosis, anxiety disorder, low back pain with lumbar disc disease, thoracic disc disease, and thoracic scoliosis, hypertension, and hypothyroidism who presented to [facility] emergency room for evaluation after experiencing chest and back discomfort with an elevated blood pressure at 234/110. She stated she also felt an irregular heart rhythm. Upon arrival to the emergency room she felt much better. She did take an extra verapamil lprior to coming to the ER. In the emergency room blood pressure was found to be 235/110, 190/101, and 184/99. Heart rate was found to be in the 80s and 70s. She was given a liter of IV fluids along with an aspirin, and nitroglycerin sublingually. She also had nitroglycerin paste placed. Chest x-ray revealed scattered bilateral perihilar/infrahilar subsegmental atelectasis or scarring. Lab data as follows: 05/17/21 22:35: WBC 6.7, RBC 4.19 L, Hgb 13.0, Hct 39.9, MCV 95.2, MCH 31.2, MCHC 32.7, RDW 13.6, Plt Count 183, MPV 8.4, Neut % (Auto) 31.4 L, Lymph % (Auto) 56.5 H, [place] % (Auto) 4.9, Eos % (Auto) 5.9, Baso % (Auto) 1.3, Neut # (Auto) 2.1, Lymph # (Auto) 3.8, [place] # (Auto) 0.3, Eos # (Auto) 0.4, Baso # (Auto) 0.1, Total Counted 100, Neutrophils % (Manual) 36 L, Band Neutrophils % 2.0, Lymphocytes % (Manual) 56 H, Monocytes % (Manual) 3, Eosinophils % (Manual) 3, Platelet Estimate Normal, RBC Morphology Normal, ESR 24 05/17/21 22:35: Sodium 139, Potassium 3.9, Chloride 103, Carbon Dioxide 24, Anion Gap 15.9 H, BUN 29 H, Creatinine 1.00, Estimated Creat Clear 47, Estimated GFR 53 L, Est GFR ( Amer) 64, Glucose 107 H, Calcium 9.7, Magnesium 1.9, Total Bilirubin 0.4, Direct Bilirubin 0.4, Conjugated Bilirubin 0.0, Indirect Bilirubin 0.0, Unconjugated Bilirubin 0.0, AST 31, ALT 18, Alkaline Phosphatase 122, Troponin I < 0.01, C-Reactive Protein 1.4, Total Protein 8.1, Albumin 4.8, Procalcitonin 0.077 05/17/21 22:35: TSH 1.50, Thyroxine (T4) 9.7 05/17/21 23:10: SARS-CoV-2 (PCR) Not detected, Influenza A Untype (PCR) Not detected, Influenza Type B (PCR) Not detected Patient had a cardiology consult with documentation as follows: 80-year-old female presented to ED last evening with midsternal chest pain radiating to the upper portion of her back and neck. Patient states prior to arriving to the ED she did take her blood pressure at home which was elevated. Patient states her reading was 234/110. Patient states when she realized her blood pressure had been elevated, she did take an extra dose of verapamil. Verapamil did decrease her blood pressure. Patient states she has noticed she has been eating a lots of salt and has increased her sodium intake in the past couple weeks. No swelling noted of the lower extremities. Patient states chest pain was 10/10 on pain scale when arriving to the ED. Patient did states she felt that this was more anxiety than heart related. Patient denies chest pain, tightness or pressure. Patient denies shortness of breath. Patient denies nausea or vomiting. Patient denies fevers. Blood pressure has been stable since admission. Patient does complain of gas-like pain in her chest. States when she is able to belch she feels much better. Patient states this has been going on for the past few weeks. Patient does have history of mild coronary artery disease which was noted from a left heart catheterization in 2016. Patient does have history of aortic insufficiency and aortic stenosis and mild to moderate mitral valve regurgitation. This was noted on a prior echocardiogram from December 2020. EF noted at 55%. Patient does have history of pulmonary hypertension. Patient is a non-smoker. Raffi
== END 2021-05-19 10:20 | disposition home or self-care (01) ==
LOC: ER 22:45 → 2ND 05-18 00:34 → OB 05-19 00:16
PROVIDERS: Internal Medicine; Urology; Admitting Provider Family Medicine; Emergency Provider Emergency Medicine; PCP Family Medicine; Visit Provider Family Medicine
DX: R07.9 Chest pain, unspecified (principal); Z20.822 Contact with and (suspected) exposure to COVID-19; I35.0 Nonrheumatic aortic (valve) stenosis; I25.110 Atherosclerotic heart disease of native coronary artery with unstable angina pectoris; I10 Essential (primary) hypertension; E03.9 Hypothyroidism, unspecified; I27.20 Pulmonary hypertension, unspecified; I34.0 Nonrheumatic mitral (valve) insufficiency; Z79.899 Other long term (current) drug therapy; Z88.8 Allergy status to other drugs, medicaments and biological substances
CPT/HCPCS: G0378; 36415; 71046; 80048; 80076; 81001; 83735; 84145; 84436; 84443; 84484; 85007; 85025; 85651; 86140; 93005; 93306; 93458; 96365; 99152; 99284; C1725; C1760; C1769; J1644; Q9967; U0003

== ENCOUNTER → 2021-05-26 08:37 | Outpatient (CLI) | payer MEDICARE, OTHER, SELFPAY ==
[2021-05-26 09:29] LABS: Basophils # 0.1 K/mm3 (0-0.2); Basophils % 1.1 % (0.1-2.0); Eosinophils # 0.4 K/mm3 (0.0-0.4); Eosinophils % 7.4 % (0.1-12.0); Hematocrit 38.3 % (37.0-47.0); Hemoglobin 12.5 g/dL (12.2-16.2); Mean Corpuscular HGB Conc 32.6 g/dL (31.8-35.4); Mean Corpuscular Hemoglobin 31.9 pg (27.0-31.2); Mean Corpuscular Volume 97.8 fl (81-99); Mean Platelet Volume 8.2 fl (7.4-10.4); Monocytes # 0.4 K/mm3 (0.1-1.0); Monocytes % 7.5 % (1.7-9.3); Neutrophils # 2.8 K/mm3 (1.8-7.8); Platelet Count 287 K/mm3 (142-424); Red Blood Count 3.92 M/mm3 (4.20-5.40); White Blood Count 5.7 K/mm3 (4.8-10.8)
[2021-05-26 10:11] LABS: Anion Gap 14.6 mEq/L (5-15); Blood Urea Nitrogen 31 mg/dl (7-17); Calcium 9.7 mg/dl (8.4-10.2); Carbon Dioxide 28 mmol/L (22.0-30.0); Chloride 99 mmol/L (98-107); Estimated Glomerular Filt Rate 60 ml/min (>60); GFR (African American) 73 ML/MIN (>60); Glucose 97 mg/dl (74-100); Potassium 4.6 mmoL/L (3.5-5.1); Sodium 137 mmol/L (136-145)
== END ==
PROVIDERS: Visit Provider Urology
DX: I25.10 Atherosclerotic heart disease of native coronary artery without angina pectoris (principal)
CPT/HCPCS: 36415; 80048; 85025

== ENCOUNTER → 2022-06-15 09:02 | Outpatient (CLI) | payer MEDICARE, OTHER, SELFPAY ==
--- NOTE | 2022-06-15 09:02 | CA_ITS ---
APPROVED REPORT EXAM: Comprehensive 2D, Doppler, and color-flow Echocardiogram Returned Telephone Equipment Appraiser: Amber White CRT Ht: 5 ft 1 in Wt: 160lbs BSA: 1.72 BP: 137/63 mmHg Indications: Mitral Valve Disease, Hyperlipidemia, Hypertension/HDD, CaOV Mitral Valve Disease, Hypertension/HDD 2D Dimensions LVOT 1.57 cm (M/F) 1.5-2.5 LA Volume 57.50 mL LA Volume Index 33.40 mL/m2 (M/F) 16-34 M-Mode Dimensions RVDd 2.62 cm (0.9-2.6) LA Diam 3.71 cm (1.9-4.0) LVDd 4.37 cm (3.5-5.7) Ao Diam 3.26 cm (2.0-3.7) LVDs 2.75 cm (3.5-5.7) IVSd 1.44 cm (0.6-1.1) PWd 0.62 cm (0.6-1.1) EF (Teich) 67.20% FS 37.10% EDV (Teich) 86.30 mL TAPSE 2.90 (<1.7) ESV (Teich) 28.30 mL LV Diastology E Decel Time 323.00 (160-240 msec) E/A Ratio 0.96 MED E' 7.30 (< 7 cm/sec) MED A' 7.00 cm/s E'/MED E' Ratio 17.92 (>14) LAT E' 6.00 (<10 cm/sec) LAT A' 8.40 cm/s E/LAT E' Ratio 21.80 (>14) Aortic Valve LVOT Max 311.00 (70-110 cm/s) LVOT VTI 81.32 cm AoV Peak Albaro. 256.00 (50-130 cm/s) AI PHT 441.00 ms AO Peak GR. 26.20 mmHg AO Mean GR. 16.40 (<5 mmHg) AO VTI 63.60 (18-25 cm) JACINTO (VTI) 2.48 (2.5-4.5 cm2) Mitral Valve MV A Velocity 136.00 (40-130 cm/s) E/A Ratio 0.96 MV Decel. Time 323.00 (160-240 ms) Pulmonary Valve PV Peak Velocity 173.00 (50-150 cm/s) Tricuspid Valve TR P. Velocity 249.00 cm/s RAP Estimate 10.00 mmHg RVSP 34.80 mmHg Left Ventricle Left atrium is moderately enlarged, left ventricle is normal size mild concentric left ventricular hypertrophy estimated ejection fraction 55% with no regional wall motion abnormality, grade 1 diastolic dysfunction seen with tissue Doppler evidence of raise left atrial pressure. Right Ventricle Right atrium and right ventricle are normal size and contractility. Aortic Valve Aortic valve is thickened and calcified, mean gradient across aortic valve is 17 mmHg, valve area is 1.41 cm??? represents mild aortic stenosis, there is mild aortic insufficiency. Mitral Valve Mitral valve has dense mitral annular calcification which extends in both anterior posterior mitral leaflet, there is no mitral stenosis, there is moderate mitral regurgitation. Tricuspid Valve Tricuspid valve is grossly normal, there is mild tricuspid regurgitation, tricuspid regurgitation jet velocity is inadequate for calculation of the right ventricular systolic pressure. Pulmonic Valve Pulmonic valve is poorly visualized. Great Vessels Aortic root is normal size. Inferior vena cava is normal size with normal inspiratory collapse. Pericardium No significant pericardial effusion noted. Conclusion 1. Moderately enlarged left atrium, normal left ventricular size mild concentric left ventricular hypertrophy, estimated ejection fraction 55% with no regional wall motion abnormality, grade 1 diastolic dysfunction seen with tissue Doppler evidence of raise left atrial pressure. 2. Thickened and calcified aortic valve mean gradient across aortic valve is 17 mmHg, valve area is 1.41 cm??? represents mild aortic stenosis, there is mild aortic insufficiency. 3. Moderate mitral and mild tricuspid regurgitation. 4. No significant pericardial effusion. 5. Inferior vena cava is normal size with normal inspiratory collapse. Electronically signed by : Colin Trujillo MD 06/16/2022 05:43:24
== END ==
PROVIDERS: PCP Family Medicine; Visit Provider Nurse Practitioner Family
DX: E78.2 Mixed hyperlipidemia (principal); I10 Essential (primary) hypertension; I25.10 Atherosclerotic heart disease of native coronary artery without angina pectoris; I34.0 Nonrheumatic mitral (valve) insufficiency; I35.0 Nonrheumatic aortic (valve) stenosis; I35.1 Nonrheumatic aortic (valve) insufficiency; I51.9 Heart disease, unspecified
CPT/HCPCS: 93306

== ENCOUNTER → 2022-06-28 14:04 | Outpatient (CLI) | payer MEDICARE, OTHER, SELFPAY ==
--- NOTE | 2022-06-28 14:12 | XR_ITS ---
FINAL REPORT CLINICAL HISTORY: ACUTE RIGHT LATERAL ANKLE PAIN FINDINGS: RIGHT ANKLE: Three views of the right ankle were obtained. There is no acute fracture or dislocation. The joint spaces and mortise are intact. There is no soft tissue abnormality. IMPRESSION: No acute process. Reviewed, Interpreted and Dictated by Diana Ye MD Transcribed by Arsenio Strauss Authenticated and [facility]
== END ==
PROVIDERS: PCP Family Medicine; Visit Provider Family Medicine
DX: M25.571 Pain in right ankle and joints of right foot (principal)
CPT/HCPCS: 73610

== ENCOUNTER 2022-09-04 11:30 | Emergency (ER) | payer MEDICARE, OTHER, SELFPAY ==
[2022-09-04 12:35] VITALS: BP 0/0; PULSE 0; RESP 0; TEMP -17.7; TEMP 0
== END 2022-09-04 12:35 | disposition left against medical advice (07) ==
LOC: UTC 11:32
PROVIDERS: Emergency Provider Nurse Practitioner Family; PCP Family Medicine
DX: R05.9 Cough, unspecified (principal); R09.81 Nasal congestion; Z53.21 Procedure and treatment not carried out due to patient leaving prior to being seen by health care provider

== ENCOUNTER → 2022-09-06 11:56 | Outpatient (CLI) | payer MEDICARE, OTHER, SELFPAY ==
--- NOTE | 2022-09-06 12:00 | XR_ITS ---
FINAL REPORT TECHNIQUE: Chest PA & Lateral CLINICAL HISTORY: ? PNEUMONIA COMPARISON: May 2021 FINDINGS: 2 views of the chest were performed. The heart size is normal. The mediastinum is within normal limits. There is elevation of the right hemidiaphragm. There is mild bibasilar opacity. There are no pleural effusions. There is no pneumothorax. There is mild rightward curvature of the thoracic spine. IMPRESSION: Mild bibasilar opacity could represent atelectasis or pneumonia. Reviewed, Interpreted and Dictated by Rolo Cisneros III, MD Transcribed by Arsenio Strauss Authenticated and [facility]
== END ==
PROVIDERS: PCP Family Medicine; Visit Provider Nurse Practitioner Family
DX: R05.9 Cough, unspecified (principal)
CPT/HCPCS: 71046

== ENCOUNTER → 2022-09-29 16:13 | Outpatient (CLI) | payer MEDICARE, OTHER, SELFPAY ==
--- NOTE | 2022-09-29 16:17 | XR_ITS ---
FINAL REPORT CLINICAL HISTORY: PNEUMONIA COMPARISON: 09/06/2022 FINDINGS: TWO-VIEW CHEST The heart size is normal. There is mild elevation of the right hemidiaphragm. There is mild but worsening left base opacities consistent with worsening atelectasis or pneumonia. There are persistent right base opacities. There is no pneumothorax. IMPRESSION: Worsening left base opacities consistent with worsening atelectasis or pneumonia with persistent right base opacities. Reviewed, Interpreted and Dictated by Rolo Cisneros III, MD Transcribed by Harper Hardin Authenticated and [facility]
== END ==
PROVIDERS: PCP Family Medicine; Visit Provider Physician Assistant
DX: J18.9 Pneumonia, unspecified organism (principal)
CPT/HCPCS: 71046

== ENCOUNTER 2022-10-09 07:35 | Emergency (ER) | payer MEDICARE, OTHER, SELFPAY ==
[2022-10-09] VITALS (10 sets, daily range): BP systolic 163–184; BP diastolic 66–92; PULSE 74–97; RESP 13–20; TEMP 36.6–36.7; O2SAT 98–100; BMI 29.6
--- NOTE | 2022-10-09 07:36 | ECG_ITS ---
APPROVED REPORT Exam: Resting ECG HR:94 bpm ECG Measurements Heart Rate 94 AXES NH 176 P 69 QRSd 91 QRS -10 QT 319 T 62 QTc 371 Conclusion SINUS RHYTHM WITH OCCASIONAL SUPRAVENTRICULAR PREMATURE COMPLEXES LOW QRS VOLTAGE IN PRECORDIAL LEADS [QRS DEFLECTION < 1.0 mV IN CHEST LEADS] MODERATE ST DEPRESSION [0.05+ mV ST DEPRESSION] ABNORMAL ECG INTERPRETATION BASED ON A DEFAULT AGE OF 40 YEARS UNCONFIRMED REPORT Electronically signed by : Justus Woods MD 10/11/2022 19:25:25
--- NOTE | 2022-10-09 07:43 | XR_ITS ---
PROCEDURE INFORMATION: Exam: XR Chest Exam date and time: 10/09/2022 7:48 AM Age: 82 years old Clinical indication: Pain; Chest pressure; Additional info: Chest pain TECHNIQUE: Imaging protocol: Radiologic exam of the chest. Views: 2 views. COMPARISON: CR XR CHEST 2V 09/29/2022 4:18 PM FINDINGS: Lungs: Opacities in the left base may represent atelectasis or pneumonia.. Pleural spaces: Unremarkable. No pleural effusion. No pneumothorax. Heart/Mediastinum: Unremarkable. No cardiomegaly. Bones/joints: Unremarkable. IMPRESSION: Opacities in the left base may represent atelectasis or pneumonia..
--- NOTE | 2022-10-09 07:47 | PC.NURSE ---
called radiology for chest xray.
--- NOTE | 2022-10-09 07:49 | HMH.EDCP ---
Discharge Plan Disposition Patient Disposition: Home, Self-Care Condition: Good Prescriptions Prescriptions: No Action omeprazole 20 mg capsule,delayed release(DR/EC) 20 mg PO DAILY levothyroxine [Synthroid] 50 mcg tablet 50 mcg PO DAILY cholecalciferol (vitamin D3) 1,000 unit capsule 1,000 unit PO DAILY fexofenadine [Liliam Allergy] 60 mg tablet 60 mg PO DAILYP PRN (Reason: ALLERGY SYMPTOMS) irbesartan 300 mg tablet 300 mg PO DAILY Qty: 90 3RF aspirin [Adult Low Dose Aspirin] 81 mg tablet,delayed release (DR/EC) 81 mg PO DAILY Qty: 30 5RF furosemide [Lasix] 20 mg tablet 20 mg PO DAILY Qty: 90 3RF pravastatin 20 MG tablet 20 mg PO DAILY carvedilol 12.5 MG tablet 12.5 mg PO BID Qty: 60 0RF Clinical Impressions Clinical Impression: Chest pain, JEWELS (acute kidney injury) Instructions Patient Instructions: DI for Orthostatic Hypotension, Acute Kidney Injury Discharge ED Provider: Gabriel Nunn Chest Pain HPI General Chief Complaint: Chest Pain Stated Complaint: chest pain Time Seen by Provider: 10/09/22 07:54 Mode of Arrival: Ambulatory Source of Information: Patient Limitations: No Limitations Description of Symptoms (Recalled from ER Triage Doc. by RN): c/o chest pain that started at 11am that is more in her back, states the pain isnt really pain but pressure. PEr pt her DBP has been high with an irregular heart. History of Present Illness HPI narrative: Patient is an 82-year-old female past medical history of pulmonary hypertension, aortic insufficiency, hyperlipidemia, hypertension, CAD who presents with concern for chest pressure and tachycardia. She states that she was getting out of bed earlier tonight when she subsequently started to feel palpitations. She checked her heart rate and it was 130s. She said that she had sat down and her heart rate only went down into the 110s so they wanted to come in for evaluation. She says that her symptoms have actually resolved now. She says that she was recently diagnosed with pneumonia and has been taking Levaquin for this and it is improving. She denies any shortness of breath. Says her sputum production is improving. Denies any nausea or diaphoresis. CHUCKIE Score for Non-Stemi Age of Patient: 80-89 years old Heart Rate: 70-89 bpm Systolic Blood Pressure: 140-159 mmHg Serum Creatinine: 0.80-1.19 mg/dl CHF Killip Class: I-No CHF Other Risk Factors: None Non-Stemi Risk Score: 131 Risk Stratification: 109-140 = Intermediate Ri Related Data Home Medications Medication Instructions Recorded Confirmed cholecalciferol (vitamin D3) 25 1,000 unit PO DAILY Supplement 01/23/18 06/09/22 mcg (1,000 unit) capsule levothyroxine 50 mcg tablet 50 mcg PO DAILY thyroid 01/23/18 06/09/22 (Synthroid) omeprazole 20 mg capsule,delayed 20 mg PO DAILY GERD 01/23/18 06/09/22 release fexofenadine 60 mg tablet (Liliam 60 mg PO DAILYP PRN ALLERGY 04/25/18 06/09/22 Allergy) SYMPTOMS pravastatin 20 mg tablet 20 mg PO DAILY Cholesterol 05/18/21 06/09/22 Previous Rx's Medication Instructions Recorded carvedilol 12.5 mg tablet 12.5 mg PO BID #60 tabs 05/19/21 aspirin 81 mg tablet,delayed 81 mg PO DAILY #30 tabs 12/09/21 release (Adult Low Dose Aspirin) irbesartan 300 mg tablet 300 mg PO DAILY #90 tabs 12/09/21 furosemide 20 mg tablet (Lasix) 20 mg PO DAILY #90 tabs 04/01/22 Allergies Allergy/AdvReac Type Severity Reaction Status Date / Time azithromycin Allergy Unknown Verified 06/09/22 10:10 [From ZITHROMAX Z-DAVIS] sulfamethoxazole Allergy Unknown Verified 06/09/22 10:10 [From BACTRIM] trimethoprim [From BACTRIM] Allergy Unknown Verified 06/09/22 10:[address] [facility] Disclaimer: The information contained in this section may have been updated after the patient was seen, as this information can be updated by other users. Medical History Aorti
--- NOTE | 2022-10-09 07:50 | PC.NURSE ---
er at bedside
--- NOTE | 2022-10-09 07:57 | PC.NURSE ---
pt transported to radiology via wheelchair.
[2022-10-09 07:59] LABS: Basophils # 0.1 K/mm3 (0-0.2); Basophils % 1.6 % (0.1-2.0); Eosinophils # 0.3 K/mm3 (0.0-0.4); Eosinophils % 5.1 % (0.1-12.0); Hematocrit 39.8 % (37.0-47.0); Hemoglobin 12.4 g/dL (12.2-16.2); Lymphocytes # 2.7 K/mm3 (0.7-4.5); Mean Corpuscular Hemoglobin 29.9 pg (27.0-31.2); Mean Corpuscular Volume 96.5 fl (81-99); Mean Platelet Volume 8.7 fl (7.4-10.4); Monocytes # 0.4 K/mm3 (0.1-1.0); Neutrophils # 2.9 K/mm3 (1.8-7.8); Neutrophils % 45.3 % (37.0-80.0); Platelet Count 284 K/mm3 (142-424); Red Blood Count 4.13 M/mm3 (4.20-5.40); Red Cell Distribution Width 14.1 % (11.5-17.5); White Blood Count 6.4 K/mm3 (4.8-10.8)
--- NOTE | 2022-10-09 07:59 | PC.NURSE ---
pt returned from radiology via wheelchair.
[2022-10-09 08:03] LABS: Alanine Aminotransferase 16 U/L (12-78); Albumin Level 4.7 g/dl (3.5-5.0); Albumin/Globulin Ratio 1.3 (1.1-1.8); Alkaline Phosphatase 83 U/L (38-126); Anion Gap 13.3 mEq/L (5-15); Aspartate Amino Transferase 25 U/L (14-36); Bilirubin,Total 0.5 mg/dl (0.2-1.3); Blood Urea Nitrogen 24 mg/dl (7-17); Calcium 9.7 mg/dl (8.4-10.2); Carbon Dioxide 24 mmol/L (22.0-30.0); Chloride 108 mmol/L (98-107); Creatinine Clearance Estimated 43 mL/min (50-200); Estimated Glomerular Filt Rate 47 ml/min (>60); GFR (African American) 57 ML/MIN (>60); Globulin 3.5 g/dL (1.3-3.2); Glucose 118 mg/dl (74-100); Potassium 4.3 mmoL/L (3.5-5.1); Sodium 141 mmol/L (136-145); Total Protein,Serum 8.2 g/dl (6.3-8.2)
[2022-10-09 08:15] LABS: Troponin I 0.04 ng/ml (0.00-0.034)
--- NOTE | 2022-10-09 09:27 | PC.NURSE ---
assisted pt to the restroom with standby assist. pt tolerated well. updated on care. provided pt's with cup of coffee.
--- NOTE | 2022-10-09 09:39 | PC.NURSE ---
pt assisted back from restroom. hooked back up to vitals. vitals cycling. provided pt with warm blanket.
--- NOTE | 2022-10-09 10:47 | PC.NURSE ---
called lab to draw second trop.
--- NOTE | 2022-10-09 10:51 | PC.NURSE ---
lab at bedside
[2022-10-09 11:24] LABS: Troponin I 0.04 ng/ml (0.00-0.034)
--- NOTE | 2022-10-09 11:34 | PC.NURSE ---
eugenio connelly at bedside updating pt.
== END 2022-10-09 11:55 | disposition home or self-care (01) ==
PROVIDERS: Emergency Provider Student in an Organized Health Care Education/Training Program; PCP Family Medicine
DX: N17.9 Acute kidney failure, unspecified; R07.89 Other chest pain; I10 Essential (primary) hypertension; R00.2 Palpitations; I25.10 Atherosclerotic heart disease of native coronary artery without angina pectoris; I27.20 Pulmonary hypertension, unspecified; E78.5 Hyperlipidemia, unspecified
CPT/HCPCS: 36415; 71046; 80053; 84484; 85025; 93005; 96360; 99285

== ENCOUNTER → 2022-10-27 12:32 | Outpatient (CLI) | payer MEDICARE, OTHER, SELFPAY ==
--- NOTE | 2022-10-27 12:36 | CT_ITS ---
FINAL REPORT TECHNIQUE: Axial CT with contrast with 3-D MIP reconstruction CLINICAL HISTORY: PNEUMONIA FINDINGS: CT CHEST W/CONTRAST Pulmonary vessels enhance in normal fashion without evidence of embolism. Thoracic aorta shows no dissection or aneurysm. No pulmonary mass is seen. No infiltrate is present to indicate active pneumonia. There is subpleural interstitial prominence in the left lung base which is likely scarring. There is no significant pleural effusion. There is no significant pericardial effusion. No mediastinal or hilar adenopathy is present. There is a right thyroid mass measuring 18 mm. There is a moderate hiatal hernia. There are hepatic and right renal cysts. IMPRESSION: 1. No acute lung disease. 2. No evidence of pulmonary embolism. 3. Right thyroid mass. Recommend thyroid ultrasound follow-up. Reviewed, Interpreted and Dictated by Diana Ye MD Transcribed by Fanny Goss Authenticated and [facility]
== END ==
PROVIDERS: PCP Family Medicine; Visit Provider Physician Assistant
DX: J18.9 Pneumonia, unspecified organism (principal)
CPT/HCPCS: 71260; Q9967

== ENCOUNTER → 2022-10-29 10:27 | Outpatient (CLI) | payer MEDICARE, OTHER, SELFPAY ==
--- NOTE | 2022-10-29 10:34 | US_ITS ---
FINAL REPORT CLINICAL HISTORY: THYROID MASS right lobe FINDINGS: THYROID ULTRASOUND Sonographic images of the thyroid was obtained. The right lobe of the thyroid measures 5.3 x 2.6 x 1.6 cm. The left lobe of the thyroid measures 5.0 x 2.4 x 1.8 cm. The isthmus measures 2 mm. The thyroid is at the upper limits of normal in size. It is diffusely heterogeneous suggestive of goiter or thyroiditis. There are 2 nodules identified within the right thyroid lobe accounting for the CT abnormality. The more superior nodule is heterogeneous, predominantly solid measuring 2.9 x 2.1 x 1.5 cm. The more inferior nodule is solid and hypoechoic measuring up to 2.0 cm. Multiple subcentimeter predominantly cystic nodules in the left lobe. IMPRESSION: 1. Multinodular goiter. 2. Dominant lesions of the right lobe, TI-RADS 4. Ultrasound-directed FNA may be considered for the 2 right lobe lesions. Reviewed, Interpreted and Dictated by Diana Ye MD Transcribed by Fanny Goss Authenticated and [facility]
== END ==
PROVIDERS: PCP Family Medicine; Visit Provider Physician Assistant
DX: E07.9 Disorder of thyroid, unspecified (principal)
CPT/HCPCS: 76536

== ENCOUNTER → 2022-11-12 07:44 | Outpatient (CLI) | payer MEDICARE, OTHER, SELFPAY ==
--- NOTE | 2022-11-12 07:48 | US_ITS ---
FINAL REPORT CLINICAL HISTORY: THYROID NODULE Nahum WOO FINDINGS: Ultrasound guided thyroid biopsy. HISTORY: Thyroid nodules. PROCEDURE: After informed consent was obtained and a time-out was performed, the patient was prepped and draped in usual sterile fashion over the anterior neck. Utilizing local anesthesia and sterile technique with a 25-gauge needle, access to the more superior right thyroid lesion was obtained. Four passes were made. Secondarily, the more inferior right thyroid nodule was targeted and 4 additional passes were made. The patient received no conscious sedation. The patient tolerated procedure well and left the department in good condition. IMPRESSION: Status post ultrasound guided biopsy of 2 right thyroid nodules without immediate complication. Films reviewed , interpreted and dictated by Dr. Talavera. Transcribed by Nahum Kaufman PA-C. Reviewed, Interpreted and Dictated by Owen Talavera MD Transcribed by AMNA Fields Authenticated and [facility]
== END ==
PROVIDERS: PCP Family Medicine; Visit Provider Family Medicine
DX: E04.1 Nontoxic single thyroid nodule (principal)
CPT/HCPCS: 10005; 76536

== ENCOUNTER → 2022-12-22 10:04 | Outpatient (CLI) | payer MEDICARE, OTHER, SELFPAY ==
[2022-12-22 11:11] LABS: Alanine Aminotransferase 19 U/L (12-78); Albumin Level 4.2 g/dl (3.5-5.0); Alkaline Phosphatase 67 U/L (38-126); Aspartate Amino Transferase 27 U/L (14-36); Bilirubin,Direct 0.2 mg/dl (0.0-0.4); Bilirubin,Indirect 0.2 mg/dL (0.0-0.9); Bilirubin,Total 0.4 mg/dl (0.2-1.3); Bilirubin,Unconjugated 0.2 mg/dL (0.0-1.1); Chol/HDL Ratio 3.2 (1-3.5); Cholesterol 209 mg/dl (140-200); HDL Cholesterol 66 mg/dl (40-60); Total Protein,Serum 6.8 g/dl (6.3-8.2); Triglycerides 210 mg/dl (30-150); VLDL Cholesterol 42 mg/dL (0-40)
[2022-12-22 11:22] LABS: Direct LDL Cholesterol 97.41 mg/dL (100-129)
== END ==
PROVIDERS: PCP Family Medicine; Visit Provider Nurse Practitioner
DX: I11.9 Hypertensive heart disease without heart failure (principal); E11.9 Type 2 diabetes mellitus without complications; Z79.899 Other long term (current) drug therapy
CPT/HCPCS: 36415; 80061; 80076